=== PATIENT | female | born 1990 | race Asian ===

== ENCOUNTER 2018-04-27 09:48 | Day surgery (SDC) | payer OTHER ==
[~2018-04-27 09:48] MED LIST: DESFLURANE 15 MIN; LIDOCAINE 2% (SDV) 5 ML INJ
[2018-04-27] MEDS ORDERED: GENTAMICIN 80 MG/NS (PMX) 50 ML (14:01)
[2018-04-27] MEDS ORDERED: PROPOFOL 20 ML (14:08)
[2018-04-27] MEDS ORDERED: MIDAZOLAM 1 MG/ML 2 ML INJ (14:09)
[2018-04-27] MEDS ORDERED: HYDROmorphONE 1 MG/5 ML IV SYRINGE IV (14:30)
[2018-04-27] MEDS ORDERED: morphine 2 MG INJ IV (14:30)
[2018-04-27] MEDS ORDERED: FENTAnyl 50 MCG/ML VIAL (14:42)
[2018-04-27] MEDS ORDERED: CEFAZOLIN 1 GM INJ (14:44)
[2018-04-27] MEDS ORDERED: DEXAMETHASONE 4 MG/ML 1 ML INJ (14:44)
[2018-04-27] MEDS ORDERED: ONDANSETRON 4 MG INJ (14:44)
[2018-04-27] MEDS: BUPIVACAINE 0.25%/EPI (SDV) 30 ML INJ (14:55)
[2018-04-27] MEDS: POLYMYXIN/BACITRACIN 1L IRRIG (14:58)
[2018-04-27] MEDS: NS IV (14:58)
[2018-04-27] MEDS: GENTAMICIN 80 MG/50 ML IV (14:58)
[2018-04-27] MEDS ORDERED: ROCURONIUM 50 MG INJ (15:29)
[2018-04-27] MEDS: BUPIVACAINE LIPOSOME/PF 266 MG/20 ML VIAL INFIL (16:14)
[2018-04-27] MEDS: SODIUM CL BACTERIOSTATIC 30 ML INJ (16:14)
[2018-04-27] MEDS ORDERED: SUGAMMADEX SODIUM 200 MG/2 ML VIAL IV (16:17)
[2018-04-27] MEDS: ONDANSETRON 4 MG INJ IV (16:46)
[2018-04-27] MEDS: HYDROmorphONE 1 MG/5 ML IV SYRINGE IV (16:46)
[2018-04-27] MEDS: HYDROCODONE/APAP (5/325) TAB PO (17:20)
== END 2018-04-27 18:30 | disposition home or self-care (01) ==
LOC: SDS 09:48
DX: F64.0 Transsexualism (principal)
CPT/HCPCS: 19325; 84703

== ENCOUNTER 2018-10-26 09:55 | Day surgery (SDC) | payer OTHER ==
[2018-10-26] MEDS ORDERED: PROPOFOL 20 ML ×2 (15:58→16:07)
[2018-10-26] MEDS ORDERED: LIDOCAINE 2% (SDV) 5 ML INJ (15:58)
[2018-10-26] MEDS ORDERED: MIDAZOLAM 1 MG/ML 2 ML INJ (15:58)
[2018-10-26] MEDS ORDERED: FENTAnyl 50 MCG/ML VIAL IV ×3 (16:00)
[2018-10-26] MEDS ORDERED: HYDROmorphONE 1 MG/5 ML IV SYRINGE IV (16:00)
[2018-10-26] MEDS ORDERED: OXYCODONE/ACETAMINOPHEN (5/325) TAB PO (16:00)
[2018-10-26] MEDS ORDERED: MEPERIDINE 25 MG INJ IV (16:00)
[2018-10-26] MEDS ORDERED: DIPHENHYDRAMINE 50 MG INJ IV (16:00)
[2018-10-26] MEDS ORDERED: CEFAZOLIN 1 GM INJ (16:07)
[2018-10-26] MEDS ORDERED: DEXAMETHASONE 4 MG/ML 5 ML INJ (16:07)
[2018-10-26] MEDS ORDERED: ONDANSETRON 4 MG INJ (16:07)
[2018-10-26] MEDS ORDERED: FENTAnyl 50 MCG/ML VIAL (16:10)
[2018-10-26] MEDS: GENTAMICIN 80 MG INJ (16:28)
[2018-10-26] MEDS: POLYMYXIN/BACITRACIN 1L IRRIG (16:29)
[2018-10-26] MEDS ORDERED: HYDROmorphONE 2 MG/ML SYG ×2 (16:44→16:45)
[2018-10-26] MEDS: BUPIVACAINE 0.25%/EPI (SDV) 30 ML INJ (17:00)
[2018-10-26] MEDS ORDERED: morphine 2 MG INJ IV (17:30)
[2018-10-26] MEDS ORDERED: ONDANSETRON 4 MG INJ IV (17:30)
[2018-10-26] MEDS ORDERED: HYDROCODONE/APAP (5/325) TAB PO (17:30)
[2018-10-26] MEDS ORDERED: ACETAMINOPHEN 325 MG TAB PO (17:30)
[2018-10-26] MEDS: ONDANSETRON 4 MG INJ IV (17:34)
[2018-10-26] MEDS: HYDROmorphONE 1 MG/5 ML IV SYRINGE IV ×2 (17:36→17:56)
[2018-10-26] MEDS: PROCHLORPERAZINE 10 MG INJ IV (18:02)
== END 2018-10-26 19:33 | disposition home or self-care (01) ==
LOC: SDS 09:55
DX: N65.1 Disproportion of reconstructed breast (principal); F64.9 Gender identity disorder, unspecified
CPT/HCPCS: 19380